=== PATIENT | male | born 1930 | race Caucasian/White ===

== ENCOUNTER → 2016-11-25 | Outpatient (CLI) | payer OTHER ==
[~2016-11-25] MED LIST: ACETAMINOPHEN325 M1 PO; AMOX TR-K CLV1 EAC3 PO; ARICEPT10 MG PO; ARICEPT5 MG PO; ARTHROTEC 501 TABLET PO; ASPIR-TRIN325 M1 PO; ASPIRIN E.C.81 M1 PO; ASPIRIN325 MG PO; ASPIRIN81 M1 PO; ATENOLOL50 MG PO; ATIVAN0.5 MG PO; Arthrotec 50 PO; BAYER ASPIRIN325 MG PO; BENGAY GREASEL113 GM TP; BUSPIRONE HCL5 MG PO; CARDIZEM CD,CA180 MG PO; CEFDINIR300 MG PO; CELEXA20 MG PO; CELEXA40 MG PO; CLARITIN10 M3 PO; COMBIVENT RESPIM4 GM IH; COUMADIN1 MG PO; Celexa PO; DAILY VITE1 EAC1 PO; DECADRON2 MG PO; DEPAKOTE ER (E250 MG PO; DEPAKOTE ER250 MG PO; DEPAKOTE500 MG PO; ERGOCALCIF50000 UNIT PO; EXELON PATCH4.6 MG TD; FUROSEMIDE20 MG PO; FUROSEMIDE40 MG PO; GALANTAMINE HBR4 MG PO; HEPARIN SO5000 UNITS SC; K-DUR10 MEQ PO; K-DUR20 MEQ PO; K-LOR20 MEQ PO; KENALOG,ARISTOC80 GM TP; KLOR-CON M2020 MEQ PO; LASIX20 MG PO; LASIX40 MG PO; LEVEMIR FL100 UNIT/1 SC; LEVEMIR100 UNIT/2 SC; LIDEX 0.05% CRE60 GM TP; LIDOCAINE700 MG TD; LIDODERM 5% P1 PATCH TD; LOPRESSOR100 M1 PO; LORATADINE10 M2 PO; LOVENOX80 MG/0.8 SC; Lasix PO; MAALOX ADVANCE355 ML PO; MELOXICAM7.5 MG PO; METOPROLOL TAR100 MG PO; MILK OF MAGN PO; MIRTAZAPINE15 MG PO; Motrin PO; NAMENDA10 MG PO; NORVASC10 MG PO; NOVOLOG PE100 UNITS/ SC; Namenda PO; OMEPRAZOLE20 M3 PO; OMEPRAZOLE20 MG PO; PERCOCET 5/31 TABLET PO; PROMETHAZINE HC25 M1 PO; PROTONIX40 MG PO; REMERON15 M2 PO; RISPERDAL0.5 MG PO; RISPERIDONE0.25 MG PO; SALINE NASAL SP45 ML NS; SENNA PLUS TAB1 EACH PO; SIMVASTATIN10 MG PO; SIMVASTATIN20 MG PO; SINGULAIR10 MG PO; SPIRIVA1 INHALATI IH; TAZTIA XT120 M1 PO; TYLENOL REGULA325 MG PO; Tylenol Extra Streng PO; Vancocin Oral Solution PO; XARELTO15 MG PO; ZESTRIL,PRINIVI10 M1 PO; ZESTRIL10 MG PO; ZITHROMAX500 MG PO; ZOCOR40 MG PO; Zeasorb Antifungal Treatment,Mitrazol Powder TP; Zocor PO; [UNRECOGNIZED DRUG - OTHER] PO
== END | disposition home or self-care (01) ==
LOC: RAD 10:00
DX: R13.19 Other dysphagia (principal); R63.3 Feeding difficulties
CPT/HCPCS: 74230; 92611 GN; G8996 GN CI; G8997 GN CI; G8998 GN CI